=== PATIENT | male | born 1980 | race Caucasian/White ===

== ENCOUNTER 2018-04-10 15:20 | Emergency (ER) | payer OTHER ==
--- NOTE | 2018-04-10 15:25 | UC ---
Hand/Wrist HPI - HPI Summary HPI Summary: Patient is year old , who present today to the urgent care with injury to his right pinky finger got stuck while closing the car door about 2 hours [employer]. There is swelling. And pain around the distal interphalangeal joint of the right fifth finger. He reports that he had a tetanus shot more than 5 years ago. He took 2 ibuprofen that is helping with his pain - History Of Current Complaint Stated Complaint: HAND INJURY CAR DOOR Time Seen by Provider: 04/10/18 15:22 Hx Obtained From: Patient - Allergies/Home Medications Allergies/Adverse Reactions: Allergies Allergy/AdvReac Type Severity Reaction Status Date / Time Penicillins Allergy Unknown Verified 04/10/18 16:40 Reaction Details Home Medications: Home Medications Ibuprofen TAB* [Motrin TAB* 400 MG] 1 tab PO ONCE 04/10/18 [History Confirmed ] PMH/Surg Hx/FS Hx/Imm Hx - Additional Past Medical History Additional PMH: No significant past medical history Previously Healthy: Yes Review of Systems All Other Systems Reviewed And Are Negative: Yes Constitutional: Positive: Negative Skin: Positive: Negative Eyes: Positive: Negative ENT: Positive: Negative Respiratory: Positive: Negative Cardiovascular: Positive: Negative Gastrointestinal: Positive: Negative Genitourinary: Positive: Negative Motor: Positive: Decreased ROM - Right fifth DIP joint Neurovascular: Positive: Negative Musculoskeletal: Positive: Arthralgia, Decreased ROM - Right fifth DIP joint, Edema Neurological: Positive: Negative Psychological: Positive: Negative Is Patient Immunocompromised?: No Physical Exam - Summary Physical Exam Summary: Physical Exam: Const: Appears well. No signs of apparent distress present. Alert and oriented x 3. Musculo: Walks with a normal gait. Head/Face: Atraumatic, normocephalic on inspection. Eyes: EOMI and PERRLA in both eyes. Conjunctivae clear. No discharge noted ENT: Hearing normal, TM normal appearing bilaterally . Respiratory: Respirations are unlabored. Lungs clear to auscultation bilaterally, no wheezing , rhonchi or rales noted . CVS: Regular rate and Rhythm, S1S2 normal , no murmurs identified. Extremities: Peripheral circulation is grossly normal. Pulses 2+ Abdomen : Soft non tender , nondistended , Bowel sounds present . No guarding , rebound tenderness or rigidity noted. Skin: No lesions or rash located on the upper extremities or on the lower extremities. Neuro: Cranial nerves II to XII intact, motor and sensory intact. DTR Intact bilaterally. Mood is normal. Affect is normal. Right fifth finger: There is swelling and redness around the DIP joint. There is a small abrasion at the dorsal aspect of the distal phalanx. Slightly reduced range of motion at the DIP joint Flexor and extensor tendons appear intact Neurovascularly intact Triage Information Reviewed: Yes Vital Signs Reviewed: Yes Diagnostics - Radiology No standard instances Radiology Interpretation Completed By: Radiologist - Right fifth finger: IMPRESSION: No fracture of the right fifth digit is noted. I spoke to Dr. Kennedy and he agreed with possible nondisplaced fracture of the middle phalanx at the DIP joint. Hand/Wrist Course/Dx - Course Course Of Treatment: During the visit today, we obtained x-rays of the left fifth finger which demonstrated a nondisplaced fracture of the middle phalanx , possibly intra-articular at the DIP joint. Final report was negative for fracture so I discussed with Dr. Kennedy - and he will make the addendum with a possibility of a middle phalanx nondisplaced fracture at DIP joint. We discussed the findings and further plan. His wound was clean wrist and dressed with bacitracin and Band-Aid and he was put in the stack splint. Neurovascularly intact post splint placement. He was given a tetanus booster since his last tetanus shot was more than 5 years ago. He is from [place] and will be following up with orthopedics within a week. Patient expressed understanding . - Differential Dx/Diagnosis Provider Diagnosis: Finger fracture, right Discharge - Sign-Out/Discharge Documenting (check all that apply): Patient Departure All imaging exams completed and their final reports reviewed: Yes - Discharge Plan Condition: Stable Disposition: HOME Patient Education Materials: Finger Fracture (ED) Referrals: No Primary Care Phys,NOPCP [Primary Care Provider] - Additional Instructions: Please keep the stack splint on all the time Wound dressing in a day Follow up with orthopedics within a week . Return to Urgent care / ER if symptoms get worse. - Billing Disposition and Condition Condition: STABLE Disposition: Home
[2018-04-10 16:48] VITALS: BP 116/70
[2018-04-10] MEDS ORDERED: Tetan/Diph/Pertus SYR(Tdap)* 0.5 ML SYR(BOOSTRIX) use SYR IM ONE (17:08)
== END 2018-04-10 17:35 | disposition home or self-care (01) ==
LOC: UCEAST 15:20
DX: S62.656A Nondisplaced fracture of middle phalanx of right little finger, initial encounter for closed fracture (principal); W23.0XXA Caught, crushed, jammed, or pinched between moving objects, initial encounter; Y92.810 Car as the place of occurrence of the external cause; Z23 Encounter for immunization; Z88.0 Allergy status to penicillin
CPT/HCPCS: 73140; 90471; 90715; 99202; G0463